=== PATIENT | female | born 1955 | race Caucasian/White ===

== ENCOUNTER 2022-08-16 06:37 | Day surgery (SDC) | payer OTHER ==
[2022-08-08 12:57] VITALS: BMI 22.5
[2022-08-16 07:06] VITALS: RESP 18; TEMP 97.6
[2022-08-16] MEDS ORDERED: BUPIVACAINE HCL 100 ML ONE ×3 (07:15→09:03)
[2022-08-16] MEDS ORDERED: LIDOCAINE HCL 1%, 10 MG/ML (20ML VIAL) ONE (07:15)
[2022-08-16] MEDS ORDERED: LIDOCAINE HCL 2% (20ML MULTI-DOSE VIAL) ONE (07:27)
[2022-08-16] MEDS ORDERED: MIDAZOLAM HCL 2 MG/2 ML SINGLE DOSE VIAL ONE (07:50)
[2022-08-16] MEDS ORDERED: PROPOFOL 20 ML ONE (07:50)
[2022-08-16] MEDS ORDERED: ceFAZolin SODIUM 1 GM VIAL ONE (07:51)
[2022-08-16] MEDS ORDERED: SODIUM CHLORIDE 0.9% P/F 10 ML VIAL IJ ONE (07:51)
[2022-08-16] MEDS ORDERED: KETOROLAC TROMETHAMINE 60 MG/2 ML VIAL ONE (09:03)
[2022-08-16] MEDS ORDERED: ACETAMINOPHEN 325 MG TABLET (FP) PO PRN (09:52)
[2022-08-16] MEDS ORDERED: PROMETHAZINE HCL 25 MG/1 ML VIAL IVPUSH PRN (09:52)
[2022-08-16] MEDS ORDERED: oxyCODONE HCL 5 MG TABLET PO PRN (09:52)
[2022-08-16] MEDS ORDERED: ONDANSETRON 4 MG/2 ML VIAL IVPUSH PRN (09:52)
[2022-08-16] MEDS ORDERED: LACTATED RINGERS SOLUTION 1,000 ML IV SCH (10:00)
[2022-08-16 11:14] VITALS: BP 118/71; PULSE 60
== END 2022-08-16 10:50 | disposition home or self-care (01) ==
LOC: FASU 06:37
PROVIDERS: ATTEND Podiatrist Foot Surgery
PROC: 0QSN04Z Reposition Right Metatarsal with Internal Fixation Device, Open Approach (ICD-10-PCS; principal; 2022-08-16 08:31)
PROC: 0SNP0ZZ Release Right Toe Phalangeal Joint, Open Approach (ICD-10-PCS; 2022-08-16 08:31)
DX: M21.611 Bunion of right foot (principal); M20.41 Other hammer toe(s) (acquired), right foot
CPT/HCPCS: 73630-TC-RT-FY; 88304-TC; 88311-TC; 97116-GP